=== PATIENT | female | born 1965 | race Caucasian/White ===

== ENCOUNTER 2020-02-10 15:39 | Emergency (ER) | payer OTHER ==
[~2020-02-10] VITALS: Ht 167.6 cm; Wt 67.1 kg
[2020-02-10] MEDS ORDERED: ATORVASTATIN CA10 MG (16:25)
[2020-02-10] MEDS ORDERED: AMLODIPINE 10 MG (16:25)
[2020-02-10] MEDS ORDERED: CLORAZEPATE 3.75 MG (16:26)
[2020-02-10] MEDS ORDERED: PROGESTERONE (16:28)
[2020-02-10] MEDS ORDERED: ACID REDUCER20 M1 (16:29)
[2020-02-10] MEDS ORDERED: [UNRECOGNIZED DRUG - OTHER] (16:29)
== END 2020-02-10 19:12 | disposition home or self-care (01) ==
LOC: ER 15:39
DX: I16.0 Hypertensive urgency (principal); I10 Essential (primary) hypertension; F41.8 Other specified anxiety disorders